=== PATIENT | male | born 1960 | race Caucasian/White ===

== ENCOUNTER 2017-02-13 13:22 | Inpatient (IN) | payer BC ==
[~2017-02-13] VITALS: Ht 172.7 cm; Wt 106.6 kg
[2017-02-14] VITALS (11 sets, daily range): BP systolic 108–145; BP diastolic 61–92; PULSE 77–86; TEMP 98–98.2
[2017-02-14] MEDS ORDERED: NORVASC 10MG10 MG PO (10:38)
[2017-02-14] MEDS ORDERED: COREG12.5 MG PO (10:38)
[2017-02-14] MEDS ORDERED: HYZAAR 12.5 MG-1 TAB PO (10:39)
[2017-02-14] MEDS ORDERED: BIOTIN10000 MC1 PO (10:39)
[2017-02-14] MEDS ORDERED: EPA FISH OIL1 SGL PO (10:40)
[2017-02-14 10:49] LABS: BASO % 0.3 % (0.0-2.0); EOS # 0.2 (0.0-0.7); EOS % 2.2 % (0-4.0); GRAN # 6.9 (1.4-6.5); LYMPH # 2.7 (1.2-3.4); LYMPH % 24.9 % (20.0-51.0); MEAN CELL VOLUME 93 fl (80.0-100.0); MEAN CORPUSCULAR HGB CONC 34 g/dl (33.0-37.0); MEAN PLATELET VOLUME 9.6 fl (7.4-10.4); MONO # 0.7 (0.1-0.6); MONO % 6.8 % (1.7-9.3); PLATELET COUNT 185 K/mm3 (130-400); RED BLOOD COUNT 2.96 M/mm3 (4.20-5.60); WHITE BLOOD COUNT 10.6 K/mm3 (4.8-10.8)
[2017-02-14 10:52] LABS: HEMATOCRIT 27.5 % (42.0-52.0); HEMOGLOBIN 9.4 g/dl (13.5-18.0); MEAN CORPUSCULAR HEMOGLOBIN 32 pg (27.0-31.0); PROTHROMBIN TIME 11.6 SECONDS (9.7-12.8)
[2017-02-14 11:01] LABS: ADJUSTED CALCIUM 8.8 mg/dL (8.4-10.2); ALBUMIN 3.6 gm/dL (3.5-5.0); BILIRUBIN,TOTAL 0.5 mg/dL (0.0-1.0); CALCIUM 8.5 mg/dL (8.4-10.2); CREATININE, serum 0.77 mg/dL (0.66-1.25); POTASSIUM 3.7 mmol/L (3.4-5.0); TOTAL PROTEIN 5.8 gm/dL (6.4-8.2)
[2017-02-15 01:00] VITALS: BP 100/62; PULSE 72; TEMP 98.5
[2017-02-15 05:08] VITALS: BP 107/67; PULSE 64; TEMP 98.2
[2017-02-15 07:38] LABS: CREATININE, serum 0.8 mg/dL (0.66-1.25); POTASSIUM 3.7 mmol/L (3.4-5.0)
[2017-02-15 07:43] LABS: HEMATOCRIT 24.7 % (42.0-52.0); HEMOGLOBIN 8.2 g/dl (13.5-18.0)
[2017-02-15 10:07] VITALS: BP 135/60; PULSE 73; TEMP 98
[2017-02-15 13:40] VITALS: BP 121/75; PULSE 73; TEMP 97.8
[2017-02-15 17:21] VITALS: BP 124/84; PULSE 72; TEMP 97.8
[2017-02-15 21:41] VITALS: BP 121/78; PULSE 70; TEMP 98.4
[2017-02-16 05:40] VITALS: BP 121/78; PULSE 71; TEMP 98.7
[2017-02-16 07:30] LABS: HEMATOCRIT 25.5 % (42.0-52.0); HEMOGLOBIN 8.5 g/dl (13.5-18.0)
[2017-02-16 09:40] VITALS: BP 163/87; PULSE 86; TEMP 98.4
[2017-02-16 14:55] VITALS: BP 134/83; PULSE 79; TEMP 98.2
[2017-02-16 17:59] VITALS: BP 117/69; PULSE 83; TEMP 97.9
[2017-02-16 22:14] VITALS: BP 120/76; PULSE 66; TEMP 98.4
[2017-02-17 05:03] VITALS: BP 121/73; PULSE 78; TEMP 98.3
[2017-02-17 09:11] VITALS: BP 133/85; PULSE 82; TEMP 98
== END 2017-02-17 14:25 | disposition home or self-care (01) | DRG 982 ==
LOC: INPTSU 02-14 09:42 → SURG 02-14 12:00
PROVIDERS: Registered Nurse; Surgery
PROC: 0DB64ZZ Excision of Stomach, Percutaneous Endoscopic Approach (ICD-10-PCS; 2017-02-14)
PROC: 0DB74ZZ Excision of Stomach, Pylorus, Percutaneous Endoscopic Approach (ICD-10-PCS; 2017-02-14)
PROC: 8E0W4CZ Robotic Assisted Procedure of Trunk Region, Percutaneous Endoscopic Approach (ICD-10-PCS; 2017-02-14)
PROC: 0D164ZA Bypass Stomach to Jejunum, Percutaneous Endoscopic Approach (ICD-10-PCS; principal; 2017-02-14 12:00)
PROC: 0DJ08ZZ Inspection of Upper Intestinal Tract, Via Natural or Artificial Opening Endoscopic (ICD-10-PCS; 2017-02-14 12:00)
DX: C49.A2 Gastrointestinal stromal tumor of stomach (principal); D62 Acute posthemorrhagic anemia; D21.4 Benign neoplasm of connective and other soft tissue of abdomen; I10 Essential (primary) hypertension
CPT/HCPCS: A4315; J0330; J1100; J1170; J1650; J2370; J2405; J2704; J2710; J3010; J7030; J7042; J7050